=== PATIENT | male | born 1965 | race African-American/Black ===

== ENCOUNTER 2021-07-11 03:56 | Inpatient (IN) | payer MEDICAID, MEDICARE ==
[~2021-07-11] VITALS: Ht 185.4 cm; Wt 86.2 kg
--- NOTE | 2021-07-11 04:02 | NUR ---
PT BIBSELF C/O L INGIUNAL HERNIA x 6 MONTHS NOTED ENLARGED TODAY. PLACED IN BED 2 ON MONITOR AND PULSE OX. AWAITING ER MD FOR EVAL AND ORDERS.
--- NOTE | 2021-07-11 04:10 | NUR ---
URINE COLLECTED, SENT TO LAB.
--- NOTE | 2021-07-11 04:24 | NUR ---
WOOD BORING MACHINE OPERATOR AT BEDSIDE FOR BLOOD WORK
[2021-07-11 04:29] LABS: BASOPHILS % (AUTO) 0.5 % (0.0-2.0); EOSINOPHILS % (AUTO) 1.5 % (0.0-6.0); HEMATOCRIT 36 % (39-51); HEMOGLOBIN 11.2 g/dL (13.5-17.5); LYMPHOCYTES # (AUTO) 2.2 K/uL (0.8-4.8); LYMPHOCYTES % (AUTO) 25.7 % (20.0-44.0); MEAN CORPUSCULAR HGB CONC 31 g/dl (31.0-36.0); MEAN CORPUSCULAR VOLUME 78 fL (80-96); MONOCYTES # (AUTO) 0.5 K/uL (0.1-1.30); MONOCYTES % (AUTO) 5.5 % (2.0-12.0); NEUTROPHILS # (AUTO) 5.7 K/uL (1.8-8.9); NEUTROPHILS % (AUTO) 66.8 % (43.0-81.0); PLATELET COUNT (AUTO) 172 K/uL (150-450); RED BLOOD CELL COUNT(AUTO) 4.57 MIL/uL (4.5-6.0); WHITE BLOOD COUNT (AUTO) 8.5 K/uL (4.3-11.0)
[2021-07-11 04:30] LABS: BILIRUBIN,URINE Negative (NEGATIVE); COLOR,URINE YELLOW (YELLOW); LEUKOCYTE ESTERASE ,URINE Negative (NEGATIVE); NITRITE, URINE Negative (NEGATIVE); PH,URINE 5.5 (5.0-8.0); PROTEIN,URINE Negative (NEGATIVE); UGLUCOSE Negative (NEGATIVE); UROBILINOGEN,URINE 0.2 EU/dL (0.2)
[2021-07-11] MEDS ORDERED: ONDANSETRON HCL/PF 4 MG/2 ML VIAL ONE (04:39)
[2021-07-11] MEDS ORDERED: MORPHINE SULFATE INJ 4 MG/ML DISP.SYRIN ONE ×2 (04:39→08:50)
[2021-07-11 04:42] LABS: CALCIUM, SERUM 8.8 mg/dL (8.5-10.1); CREATININE 1.1 mg/dL (0.6-1.3); POTASSIUM 3.6 mmol/L (3.5-5.1)
[2021-07-11 04:47] LABS: ALBUMIN 3.5 g/dL (3.4-5.0); BILIRUBIN,DIRECT 0.1 mg/dL (0.0-0.2); BILIRUBIN,TOTAL 0.2 mg/dL (0.2-1.0)
[2021-07-11] MEDS ORDERED: ONDANSETRON HCL/PF 4 MG/2 ML VIAL IVP ONE (05:00)
[2021-07-11] MEDS ORDERED: MORPHINE SULFATE INJ 2 MG/ML DISP.SYRIN IV ONE (05:00)
--- NOTE | 2021-07-11 06:16 | NUR ---
PT WAS TAKEN TO CT
[2021-07-11] MEDS ORDERED: LIDOCAINE VISCOUS 2% UD 15 ML UDC MM ONE (07:00)
[2021-07-11] MEDS ORDERED: IV NS 0.9% 1,000 ML IV ONE (07:00)
[2021-07-11] MEDS ORDERED: PIPERACILLIN /TAZOBACTAM 3.375 G in IV D5W 50 ML IV ONE (07:00)
[2021-07-11] MEDS ORDERED: Z GUARD REMEDY 2 OZ OINT TP PRN (07:30)
[2021-07-11] MEDS ORDERED: IV NS 0.9% 1,000 ML IV PRN (07:30)
[2021-07-11] MEDS ORDERED: LORAZEPAM INJ 2 MG/ML VIAL IV PRN (07:30)
[2021-07-11] MEDS ORDERED: ONDANSETRON HCL/PF 4 MG/2 ML VIAL IVP PRN (07:30)
--- NOTE | 2021-07-11 08:00 | NUR ---
covid swab done and sent to the lab
[2021-07-11] MEDS ORDERED: OXYC30TA2 PO (08:13)
[2021-07-11] MEDS ORDERED: MULT-447 PO (08:13)
[2021-07-11] MEDS ORDERED: BUDE10.2 IH (08:13)
[2021-07-11] MEDS ORDERED: FERR325T23 PO (08:13)
[2021-07-11] MEDS ORDERED: BACL20TA PO (08:13)
[2021-07-11] MEDS ORDERED: ALBU8.5H8 IH (08:13)
[2021-07-11] MEDS ORDERED: DEXT30TA10 PO (08:13)
[2021-07-11] MEDS ORDERED: CHOL100062 PO (08:13)
[2021-07-11] MEDS ORDERED: IBUP-1955 PO (08:13)
[2021-07-11] MEDS: MORPHINE SULFATE INJ 2 MG/ML DISP.SYRIN IV PRN (08:53)
[2021-07-11] MEDS: PANTOPRAZOLE 40 MG VIAL IV SCH (09:00)
--- NOTE | 2021-07-11 09:52 | NUR ---
GOT BED 320-2
--- NOTE | 2021-07-11 10:52 | NUR ---
REPORT GIVEN TO GINGER VILLEDA FOR PRABHA
[2021-07-11] MEDS ORDERED: PIPERACILLIN /TAZOBACTAM 3.375 G in IV D5W 50 ML IV SCH (13:00)
--- NOTE | 2021-07-11 13:15 | NUR ---
RN ADMITTING NOTES ADMITTED THIS 56 YEAR OLD MALE PATIENT WITH ADMITTING DX OF SMALL BOWEL OBSTRUCTION. PATIENT IS AWAKE, ALERT AND ORIENTED X 4, ABLE TO MAKE NEEDS KNOWN. ON RA TOLERATING WELL, NO SOB NOTED, NOT IN ANY FORM OF ACUTE DISTRESS NOTED. IV ACCESS ON LAC G#18, PATENT NAD FLUSHES WELL. STARTED AN IV OF NS 1L X 75 CC/HR. INFUSING WELL, NO S/SX OF INFILTRATION NOTED. NOTED WITH ENLARGED LEFT TESTICLE, PATIENT REFUSED TO HAVE PICTURE TAKEN. NO OTHER SKIN ISSUES IDENTIFIED. REINFORCED NPO. ORIENTED TO UNIT. DEMONSTRATED HOW TO USE CALL LIGHT. SAFETY PRECAUTIONS IN PLACE: BED ON LOWEST LOCKED POSITION, SIDE RAILS UP X 2, CALL LIGHT WITHIN EASY REACH. NO COMPLAINTS OF PAIN AT THIS TIME. WILL CONTINUE TO MONITOR ACCORDINGLY.
[2021-07-11] MEDS: PIPERACILLIN /TAZOBACTAM 3.375 G in IV D5W 100 ML IV SCH ×2 (13:58→21:09)
--- NOTE | 2021-07-11 15:39 | NUR ---
RN NOTES PATIENT ACCIDENTALLY PULED OUT IV LINE, REINSERTED AN IV USING G#18 ON RFA, PATENT AND FLUSHES WELL.
--- NOTE | 2021-07-11 17:49 | NUR ---
RN NOTES PATIENT REFUSED TO SIGN PROCEDURE. PATIENT TOOK A PICTURE OF THE CONSENTS AND VERBALIZED HE WANTS TO REVIEW THEM FIRST PRIOR TO SIGNING.
--- NOTE | 2021-07-11 18:36 | NUR ---
RN CLOSING NOTES PATIENT IN BED, AWAKE, ALERT AND ORIENTED X 4, ABLE TO MAKE NEEDS KNOWN. ON RA TOLERATING WELL, NO SOB NOTED, NOT IN ANY FORM OF ACUTE DISTRESS NOTED. IV ACCESS ON LAC G#18, PATENT NAD FLUSHES WELL, ONGOING IVF NS 1L X 75 CC/HR. INFUSING WELL, NO S/SX OF INFILTRATION NOTED. NOTED WITH ENLARGED LEFT TESTICLE, SAFETY PRECAUTIONS IN PLACE: BED ON LOWEST LOCKED POSITION, SIDE RAILS UP X 2, CALL LIGHT WITHIN EASY REACH. NO COMPLAINTS OF PAIN AT THIS TIME. NO COMPLAINTS OF PAIN AT THIS TIME. ALL NEEDS ATTENDED AND MET. WILL ENDORSE TO ONCOMING SHIFT FOR PRABHA.
[2021-07-11 20:00] VITALS: BP 154/94
[2021-07-11] MEDS: ENOXAPARIN SODIUM 40 MG/0.4 ML DISP.SYRIN SQ SCH (21:09)
[2021-07-12] MEDS: MORPHINE SULFATE INJ 2 MG/ML DISP.SYRIN IV PRN ×2 (04:35→13:41)
[2021-07-12] MEDS: PIPERACILLIN /TAZOBACTAM 3.375 G in IV D5W 100 ML IV SCH ×3 (05:12→21:19)
--- NOTE | 2021-07-12 06:37 | NUR ---
MS RN NOTES AWAKE & RESPONSIVE. NOT IN ANY DISTRESS. NO SOB NOTED. DENIES ANY PAIN OR DISCOMFORT AT THIS TIME. WITH IVF INFUSING WELL. MONITORED ACCORDINGLY. CALL LIGHT WITHIN REACH. BED IN LOWEST POSITION. SR UP X2 FOR SAFETY. WILL ENDORSE TO NEXT SHIFT.
--- NOTE | 2021-07-12 07:44 | NUR ---
RN OPENING NOTE PATIENT IN BED RESTING. A/O X4. NO S/S OF PAIN NOTED AT THIS TIME. ON ROOM AIR, NO DISTRESS OF SHORTNESS OF BREATH NOTED. IV ACCESS, FOREARM. FALL AND SAFETY MEASURES IN PLACE, BED IN LOW AND LOCK POSITION, CALL LIGHT WITHIN EASY REACH, SIDE RAILS UP X2. WILL CONTINUE TO MONITOR.
[2021-07-12] MEDS: PANTOPRAZOLE 40 MG VIAL IV SCH (08:41)
[2021-07-12] MEDS: ENOXAPARIN SODIUM 40 MG/0.4 ML DISP.SYRIN SQ SCH (08:42)
[2021-07-12 10:04] LABS: BASOPHILS % (AUTO) 0.4 % (0.0-2.0); EOSINOPHILS % (AUTO) 2.3 % (0.0-6.0); HEMATOCRIT 37 % (39-51); HEMOGLOBIN 11.7 g/dL (13.5-17.5); LYMPHOCYTES # (AUTO) 2.2 K/uL (0.8-4.8); LYMPHOCYTES % (AUTO) 34.1 % (20.0-44.0); MEAN CORPUSCULAR HGB CONC 32 g/dl (31.0-36.0); MEAN CORPUSCULAR VOLUME 78 fL (80-96); MONOCYTES # (AUTO) 0.4 K/uL (0.1-1.30); MONOCYTES % (AUTO) 6.7 % (2.0-12.0); NEUTROPHILS # (AUTO) 3.6 K/uL (1.8-8.9); NEUTROPHILS % (AUTO) 56.5 % (43.0-81.0); PLATELET COUNT (AUTO) 183 K/uL (150-450); RED BLOOD CELL COUNT(AUTO) 4.78 MIL/uL (4.5-6.0); WHITE BLOOD COUNT (AUTO) 6.4 K/uL (4.3-11.0)
[2021-07-12 10:48] LABS: CALCIUM, SERUM 9.2 mg/dL (8.5-10.1); CREATININE 1.2 mg/dL (0.6-1.3); MAGNESIUM 2.3 mg/dL (1.8-2.4); POTASSIUM 3.3 mmol/L (3.5-5.1)
[2021-07-12 10:53] LABS: IRON, SERUM 73 ug/dl (50-175); TOTAL IRON BINDING CAPACITY 265 ug/dl (250-450)
[2021-07-12 12:34] LABS: FERRITIN 89 ng/mL (8-388)
[2021-07-12 16:00] VITALS: BP 127/77
--- NOTE | 2021-07-12 19:01 | NUR ---
RN CLOSING NOTES PATIENT IN BED RESTING, AWAKE. A/O X4. NO S/S OF PAIN NOTED AT THIS TIME. ON ROOM AIR, NO DISTRESS OR SHORTNESS OF BREATH NOTED. IV ACCESS, LEFT FOREARM #22G. ALL SCHEDULE MEDS ADMINISTERED. FALL AND SAFETY MEASURES IN PLACE, BED IN LOW AND LOCK POSITION, CALL LIGHT WITHIN EASY REACH, SIDE RAILS UP X2. WILL ENDORSE TO [facility]LER.
--- NOTE | 2021-07-12 20:00 | NUR ---
MS RN NOTES PT REFUSED TO HAVE VS TAKEN. EXPLAINED TO PT IMPORTANCE OF VS IN HIS POC BUT PT STILL REFUSED. WILL CONTINUE TO MONITOR.
--- NOTE | 2021-07-12 22:00 | NUR ---
MS RN NOTES PT WENT DOWN TO GET SOME FRESH AIR. UNHOOKS HIMSELF FROM THE IV FLUIDS WITHOUT CALLING FOR ASSISTANCE. EXPLAINED TO HIM HOSPITAL POLICY BUT PT IS NON COMPLIANT. WILL CONTINUE TO MONITOR.
[2021-07-13] MEDS: PIPERACILLIN /TAZOBACTAM 3.375 G in IV D5W 100 ML IV SCH (05:41)
--- NOTE | 2021-07-13 06:48 | NUR ---
MS RN NOTES AWAKE & RESPONSIVE. NOT IN ANY DISTRESS. NO SOB NOTED. DENIES ANY PAIN OR DISCOMFORT AT THIS TIME. KEPT ON NPO P MN WITH IVF INFUSING WELL. CALL LIGHT WITHIN REACH. BED IN LOWEST POSITION. SR UP X 2 FOR SAFETY. WILL ENDORSE TO NEXT SHIFT.
[2021-07-13 07:07] LABS: BILIRUBIN,TOTAL 0.4 mg/dL (0.2-1.0); CALCIUM, SERUM 8.8 mg/dL (8.5-10.1); CREATININE 1.1 mg/dL (0.6-1.3); MAGNESIUM 2.4 mg/dL (1.8-2.4); PHOSPHORUS 4.4 mg/dL (2.5-4.9); TOTAL PROTEIN, SERUM 6.3 g/dL (6.4-8.2)
[2021-07-13 07:19] LABS: BASOPHILS % (AUTO) 0.8 % (0.0-2.0); EOSINOPHILS % (AUTO) 2.6 % (0.0-6.0); HEMATOCRIT 34 % (39-51); HEMOGLOBIN 10.8 g/dL (13.5-17.5); LYMPHOCYTES # (AUTO) 2.2 K/uL (0.8-4.8); LYMPHOCYTES % (AUTO) 35.7 % (20.0-44.0); MEAN CORPUSCULAR HGB CONC 32 g/dl (31.0-36.0); MEAN CORPUSCULAR VOLUME 78 fL (80-96); MONOCYTES # (AUTO) 0.4 K/uL (0.1-1.30); MONOCYTES % (AUTO) 7.1 % (2.0-12.0); NEUTROPHILS # (AUTO) 3.3 K/uL (1.8-8.9); NEUTROPHILS % (AUTO) 53.8 % (43.0-81.0); PLATELET COUNT (AUTO) 140 K/uL (150-450); RED BLOOD CELL COUNT(AUTO) 4.43 MIL/uL (4.5-6.0); WHITE BLOOD COUNT (AUTO) 6.1 K/uL (4.3-11.0)
--- NOTE | 2021-07-13 07:36 | NUR ---
RN OPENING NOTES PATIENT IN BED, SLEEPING, AWAKENS TO VERBAL STIMULI. A/O X4. NO S/S OF PAIN NOTED AT THIS TIME. ON ROOM AIR, NO DISTRESS OR SHORTNESS OF BREATH NOTED. IV ACCESS, LEFT FOREARM #22G, INTACT AND PATENT. FALL AND SAFETY MEASURES IN PLACE, BED IN LOW AND LOCK POSITION, CALL LIGHT WITHIN EASY REACH, SIDE RAILS UP X2. WILL CONTINUE TO MONITOR.
[2021-07-13] MEDS: PANTOPRAZOLE 40 MG VIAL IV SCH (08:47)
[2021-07-13] MEDS: ENOXAPARIN SODIUM 40 MG/0.4 ML DISP.SYRIN SQ SCH (08:48)
[2021-07-13] MEDS ORDERED: BUPIVACAINE 0.5 % PF 150 MG/30 ML VIAL ONE (10:07)
[2021-07-13] MEDS ORDERED: HOME MED MISCELLANEOUS XX SCH (10:30)
--- NOTE | 2021-07-13 10:43 | NUR ---
RN NOTE PT REFUSED SURGERY OF REPAIR OF L INGUINAL HERNIA. DR HALE AWARE, DR LAL AWARE.
[2021-07-13] MEDS ORDERED: ALBUTEROL FS 2.5 MG/0.5 ML VIAL.NEB NEB PRN (11:00)
--- NOTE | 2021-07-13 13:17 | NUR ---
RN NOTE PT LEFT AMA. FORM SIGNED BY PT. IV LINE REMOVED. ID BAND REMOVED. BELONGINGS LIST CHECKED. SKIN INTACT. PT DECLINE EXITCARE EDUCATION. STABLE CONDITION. DR AND CN AWARE. PT LEFT HOME AMBULATORY ACCOMPANIED BY STAFF.
[2021-07-13] MEDS ORDERED: ALBUTEROL FS 2.5 MG/0.5 ML VIAL.NEB NEB SCH (13:30)
[2021-07-13] MEDS ORDERED: BUDESONIDE RESPULE INH 0.5 MG/2 ML AMPUL.NEB NEB SCH (17:00)
[2021-07-14] MEDS ORDERED: MULTIVITAMINS,THERAGRAN 1 UDTAB TABLET PO SCH (09:00)
[2021-07-14] MEDS ORDERED: CHOLECALCIFEROL 1,000 UNIT TABLET (VIT D3) PO SCH (09:00)
[2021-07-14] MEDS ORDERED: FERROUS SULFATE (325 MG) 325 MG/TAB TABLET PO SCH (09:00)
== END 2021-07-13 12:25 | disposition left against medical advice (07) | DRG 394 ==
LOC: ER 03:56 → TRANSITION 08:28 → MED 11:43
PROVIDERS: ADMIT Nurse Practitioner Acute Care; ATTEND Nurse Practitioner Acute Care
DX: K40.30 Unilateral inguinal hernia, with obstruction, without gangrene, not specified as recurrent (principal); E87.2 Acidosis; K59.00 Constipation, unspecified; N43.3 Hydrocele, unspecified; M48.00 Spinal stenosis, site unspecified; K42.9 Umbilical hernia without obstruction or gangrene; D50.9 Iron deficiency anemia, unspecified; F90.9 Attention-deficit hyperactivity disorder, unspecified type; Z20.822 Contact with and (suspected) exposure to COVID-19
CPT/HCPCS: 36415; 71045-TC; 74250-TC; 80048-TC; 80053-TC; 80061-TC; 80076-TC; 82728-TC; 83540-TC; 83605-TC; 83735-TC; 84100-TC; 85025-TC; 85730-TC; 87040-TC; 87081-TC; 93307-TC; C9113; G0378; J1650; J2060; J2270; J2405; J2543; J3490; J7030; J7060

== ENCOUNTER 2023-01-06 23:58 | Emergency (ER) | payer MEDICAID, MEDICARE ==
[~2023-01-06] VITALS: Ht 188 cm; Wt 79.4 kg
[~2023-01-06 23:58] MED LIST: ALBU8.5H8 IH; BACL20TA PO; BUDE10.2 IH; CHOL100062 PO; DEXT30TA10 PO; FERR325T23 PO; IBUP-1955 PO; MULT-447 PO; OXYC30TA2 PO
[2023-01-07 00:19] VITALS: BP 168/93
--- NOTE | 2023-01-07 00:19 | NUR ---
BIBSELF FROM HOME C/O L GROIN PAIN X2 DAYS. + NAUSEA. HX HERNIA REPAIR SURGERY 33 DAYS AGO.
--- NOTE | 2023-01-07 00:24 | NUR ---
DR. ECHEVERRIA AT BEDSIDE
--- NOTE | 2023-01-07 00:38 | NUR ---
Patient discharged to home in stable condition. Written and verbal after care instructions given. Patient verbalizes understanding of instruction.
== END 2023-01-07 00:39 | disposition home or self-care (01) ==
LOC: ER 01-07 00:03
DX: G89.18 Other acute postprocedural pain (principal); R10.9 Unspecified abdominal pain; F17.200 Nicotine dependence, unspecified, uncomplicated; Z60.2 Problems related to living alone; Z79.899 Other long term (current) drug therapy